=== PATIENT | male | born 1975 | race Caucasian/White ===

== ENCOUNTER 2021-02-23 21:12 | Emergency (ER) | payer OTHER ==
[~2021-02-23] VITALS: Ht 180.3 cm; Wt 99.8 kg
--- NOTE | ~2021-02-23 | EMS ---
[address] [address] EMS Patient Care Report Name: ALMITA TORRES Room: PRE M.R.#: [id number] Admission: Attend Phys: Discharge: Date of : 71 Report #: [id number] THIS REPORT FOR: //name// Report Transmitted: 02/23/2021 20:37 EMS Care Summary DIDIER COTO Incident [id number] @ 02/23/2021 20:05 Incident Location [address] [place] [address] Patient ALMITA TORRES Male, 46 Years 1975 Patient Address [address] [place] [address] Patient History Hypertension (HTN), Patient Allergies No known allergies, Patient Medications Carvedilol, Chief Complaint Dizziness Disposition Transported No Lights/[place] Dispatch Reason Sick Person Transported To [facility] Narrative [facility] WAS DISPATCHED EMERGENT AND THEN DOWNGRADED TO NON-EMERGENT FOR A 46 Y/O MALE WITH NAUSEA, VOMITING AND DIZZINESS. UPON ARRIVAL ON SCENE, THE PT WAS FOUND LAYING ON THE COUCH IN THE CARE OF IFD. THE PT WAS AWAKE, ALERT, GCS OF 15, PALE, COOL, AND CLAMMY. THE PT AND HIS FAMILY INDICATE THAT THE PT HAD BEEN [address] [address] EMS Patient Care Report Name: ALMITA TORRES Room: PRE ER ..#: [id number] Admission: Attend Phys: Discharge: Date of : 71 Report #: [id number] OUTSIDE FOR A LITTLE WHILE AND THEN CAME IN TO EAT A LARGE AMOUNT OF SUPREME AND MEAT LOVER'S PIZZA. THE PT INDICATES THAT HE HAS NOT EATEN ANYTHING ALL DAY UNTIL THE PIZZA. THE PT INDICATES THAT 30 MINUTES AFTER EATING, HE BEGAN TO FEEL DIZZY AND NAUSEOUS. THE PT THEN VOMITING 6 TIMES WITHIN THAT TIME AND EMS ARRIVAL. THE PT INDICATES THAT HE WAS FEELING FINE BEFORE. NO ONE ELSE WHO ATE THE PIZZA IS NOTED TO BE FEELING ILL. THE PT HAD NO FALLS OR ANY LOC. IFD INDICATED THAT THE PT'S BGL WAS 106 AND HIS BLOOD PRESSURE WAS 130/68. THERE WAS A DELAY ON SCENE THE PT WAS CONTEMPLATING REFUSING EMS AND GOING POV. A 12 LEAD WAS DONE (SEE REPORT). THE PT STOOD UP WITH ASSISTANCE AND WAS DIZZY AND THE ROOM WAS SPINNING WHEN HIS EYES WERE OPEN. THE PT SAT BACK DOWN AND WAS ALRIGHT. THE PT THEN BEGAN TO VOMIT FORCEFULLY. THE PT THEN AGREED TO GO TO THE ER WITH [facility]. THE PT WAS ASSISTED TO THE COT AND THEN LOADED INTO THE AMBULANCE. ONCE IN THE AMBULANCE, A SET OF VITALS, IV, BGL, BLOOD DRAW, 12 LEAD, LACTATED RINGER'S, AND IV ZOFRAN WAS GIVEN (SEE REPORT). [facility] WENT EN ROUTE NON-EMERGENT TO [facility]. A RADIO REPORT WAS GIVEN EN ROUTE. THE PT REMAINED STABLE, GCS OF 15, AND VITALS WERE MONITORED EN ROUTE. THE PT'S SKIN SIGNS IMPROVED ALONG WITH HIS DIZZINESS AND NAUSEA. UPON ARRIVAL, THE PT WAS UNLOADED AND TAKEN TO THE ER BED. A HAND OFF REPORT WAS GIVEN. [facility] WAS THEN CLEARED AND RETURNED TO SERVICE. Initial Vitals @20:37SpO2: 95, @20:47SpO2: 95, @20:52SpO2: 95, @21:02SpO2: 95, @20:20 @20:20 @20:21 @20:40 @20:41 @20:23P: 64,R: 16,BP: 128/84, @20:42P: 64,R: 16,BP: 136/83, @20:52P: 70,R: 16,BP: 124/95, @21:02P: 63,R: 16,BP: 134/79, @20:23GCS: 15, @20:42GCS: 15, @20:52GCS: 15, @21:02GCS: 15, @20:42Glucose: 136, Assessments @20:13MENTAL:SKIN:HEENT:LUNG SOUNDS:ABDOMEN:PELVIS//GI:EXTREMITIES:PULSE:NEURO: [place] [address] EMS Patient Care Report Name: ALMITA TORRES Room: PRE ER M.R.#: [id number] Admission: Attend Phys: Discharge: Date of : 71 Report #: [id number] Procedures @20:44Ondansetron - 4.000 Milligrams (mg) - Intravenous (IV)Response: Improved@20:40 cc () Site: Forearm-LeftResponse: UnchangedSucceeded@20:41 cc () Response: UnchangedSucceeded@20:2012-Lead ECGResponse: UnchangedSucceeded@20:2012-Lead ECGResponse: UnchangedSucceeded@20:2112-Lead ECGResponse: UnchangedSucceeded@20:403-Lead ECGResponse: UnchangedSucceeded@20:4112-Lead ECGResponse: UnchangedSucceeded Timeline 19:43,Call Received 20:05,Dispatch Notified 20:05,Psap Call 20:05,Dispatched 20:06,En Route 20:10,On Scene 20:13,At Patient 20:20,12-Lead ECG,Response: UnchangedSucceeded, 20:20,12-Lead ECG,Response: UnchangedSucceeded, 20:20,BP: / M,PULSE: ,RR: R,SPO2: Ox,ETCO2: ,BG: ,PAIN: ,GCS: , 20:20,BP: / M,PULSE: ,RR: R,SPO2: Ox,ETCO2: ,BG: ,PAIN: ,GCS: , 20:21,12-Lead ECG,Response: UnchangedSucceeded, 20:21,BP: / M,PULSE: ,RR: R,SPO2: Ox,ETCO2: ,BG: ,PAIN: ,GCS: , 20:23,BP: 128/84 M,PULSE: 64,RR: 16 R,SPO2: Ox,ETCO2: ,BG: ,PAIN: ,GCS: , 20:23,BP: / M,PULSE: ,RR: R,SPO2: Ox,ETCO2: ,BG: ,PAIN: ,GCS: 15, 20:37,BP: / M,PULSE: ,RR: R,SPO2: 95 Ox,ETCO2: ,BG: ,PAIN: ,GCS: , 20:40, cc Site: Forearm-Left,Response: UnchangedSucceeded, 20:40,3-Lead ECG,Response: UnchangedSucceeded, 20:40,BP: / M,PULSE: ,RR: R,SPO2: Ox,ETCO2: ,BG: ,PAIN: ,GCS: , 20:41, cc Site: ,Response: UnchangedSucceeded, 20:41,12-Lead ECG,Response: UnchangedSucceeded, 20:41,BP: / M,PULSE: ,RR: R,SPO2: Ox,ETCO2: ,BG: ,PAIN: ,GCS: , 20:42,BP: 136/83 M,PULSE: 64,RR: 16 R,SPO2: Ox,ETCO2: ,BG: ,PAIN: ,GCS: , 20:42,BP: / M,PULSE: ,RR: R,SPO2: Ox,ETCO2: ,BG: ,PAIN: ,GCS: 15, 20:42,BP: / M,PULSE: ,RR: R,SPO2: Ox,ETCO2: ,B,PAIN: ,GCS: , 20:44,Ondansetron - 4.000 Milligrams (mg) - Intravenous (IV),Response: Improved 20:46,Depart Scene 20:47,BP: / M,PULSE: ,RR: R,SPO2: 95 Ox,ETCO2: ,BG: ,PAIN: ,GCS: , 20:52,BP: / M,PULSE: ,RR: R,SPO2: 95 Ox,ETCO2: ,BG: ,PAIN: ,GCS: , 20:52,BP: 124/95 M,PULSE: 70,RR: 16 R,SPO2: Ox,ETCO2: ,BG: ,PAIN: ,GCS: , 20:52,BP: / M,PULSE: ,RR: R,SPO2: Ox,ETCO2: ,BG: ,PAIN: ,GCS: 15, 21:02,BP: / M,PULSE: ,RR: R,SPO2: 95 Ox,ETCO2: ,BG: ,PAIN: ,GCS: , 21:02,BP: 134/79 M,PULSE: 63,RR: 16 R,SPO2: Ox,ETCO2: ,BG: ,PAIN: ,GCS: , 21:02,BP: / M,PULSE: ,RR: R,SPO2: Ox,ETCO2: ,BG: ,PAIN: ,GCS: 15, 21:06,At Destination 21:24,Call Closed [address] [address] EMS Patient Care Report Name: ALMITA TORRES Room: PRE M.R.#: [id number] Admission: Attend Phys: Discharge: Date of : 71 Report #: [id number] Disclaimer [email or web address] Copyright [employer] This EMS Care Summary contains data elements from the applicable legal record (which may be displayed differently). It is designed to provide pertinent information for the following purposes: continuity of care, clinical quality, and state data reporting. The complete legal record is available to ED staff and administrators of the receiving hospital in [facility]'s Patient Tracker. All data is provided "as is."
[2021-02-23] MEDS ORDERED: WATER PILL (21:20)
[2021-02-23] MEDS ORDERED: GERD MED (21:21)
[2021-02-23] MEDS ORDERED: [UNRECOGNIZED DRUG - REMARK] (21:21)
[2021-02-23 21:32] LABS: ABSOLUTE BASOPHILS 0.1 thou/uL (0.0-0.2); ABSOLUTE EOSINOPHILS 0.2 thou/uL (0.0-0.7); ABSOLUTE MONOCYTES 0.6 thou/uL (0.0-1.2); ABSOLUTE NEUTROPHILS 4.2 thou/uL (1.6-8.1); BASOPHILS 0.8 %; EOSINOPHILS 1.9 %; HEMOGLOBIN 14.8 gm/dL (14.0-18.0); LYMPHOCYTES 44.5 %; MCH 31.9 pg (26.0-34.0); MCV 88.6 fL (80.0-100.0); MONOCYTES 6.2 %; MPV 6.4 fl. (7.2-11.1); NUCLEATED RBCS 0 /100WBC; PLATELET COUNT* 299 thou/uL (150-400); POLYS 46.6 %; RBC 4.63 mil/uL (4.50-6.00); RDW-CV 13.7 % (10.5-14.5); WBC 9.1 thou/uL (4.0-11.0)
[2021-02-23 21:40] LABS: CALCIUM 8.8 mg/dL (8.5-10.1)
[2021-02-23 21:44] LABS: ALBUMIN 4.1 g/dL (3.4-5.0); POTASSIUM 2.7 mmol/L (3.5-5.1); TOTAL BILIRUBIN 0.5 mg/dL (<0.1-1.0); TOTAL PROTEIN 7.4 g/dL (6.4-8.2)
[2021-02-23 22:45] LABS: URINE BILIRUBIN NEGATIVE (Negative); URINE BLOOD 3+ (Negative); URINE CLARITY CLEAR; URINE COLOR YELLOW; URINE GLUCOSE-RANDOM NEGATIVE (Negative); URINE KETONES TRACE (Negative); URINE LEUKOCYTES-REFLEX NEGATIVE (Negative); URINE NITRITE-REFLEX NEGATIVE (Negative); URINE PROTEIN NEGATIVE (Negative); URINE SPECIFIC GRAVITY 1.025 (1.005-1.030)
[2021-02-23 23:19] LABS: HYALINE CASTS 0-3 Few /LPF (None Seen); MUCUS 4-6 Moderate strn/LPF (None Seen); SQUAMOUS 0-3 Few /LPF (0-3)
[2021-02-23 23:20] LABS: URINE WBC-REFLEX 0-5 Rare /HPF (0-5)
[2021-02-23 23:21] LABS: BACTERIA-REFLEX 1-9 Few /HPF (None Seen); CRYSTALS None Seen /LPF (None Seen)
[2021-02-23 23:42] VITALS: BP 121/65
--- NOTE | 2021-02-25 11:45 | EKG ---
[place] [address] ELECTROCARDIOGRAM REPORT Name: ALMITA TORRES Room: [facility]#: [id number] Admission: 02/23/21 Attend Phys: Discharge: 02/23/21 Date of : 71 Date of Service: 02/23/212122 Report #: [id number] THIS REPORT FOR: //name// [facility] ED Test Date: 2021-02-23 Test Time: 21:23:38 Pat Name: ALMITA TORRES Department: Room: Gender: Services Host: [facility] : 1975 Requested By: Lisbet Adan Order Number: [id number] MD: Esvin Franco Measurements Intervals [place] Rate: 62 P: 39 ND: 209 QRS: 19 QRSD: 98 T: 32 QT: 420 QTc: 427 Interpretive Statements Sinus rhythm Borderline prolonged ND interval Possible left atrial enlargement No previous ECG available for comparison Electronically Signed On 02-25-2021 11:45:30 CDT by Esvin Franco [email or web address] <ELECTRONICALLY SIGNED> By: Esvin Franco MD, [facility] 02/25/21 1145 22 22 Esvin Franco MD, [facility] /EPI
== END 2021-02-23 23:43 | disposition home or self-care (01) ==
LOC: M.ERS 21:12
PROVIDERS: Personal Emergency Response Attendant
DX: T67.3XXA Heat exhaustion, anhydrotic, initial encounter (principal); R11.2 Nausea with vomiting, unspecified; X30.XXXA Exposure to excessive natural heat, initial encounter; Y93.89 Activity, other specified; Y92.89 Other specified places as the place of occurrence of the external cause; Y99.8 Other external cause status